=== PATIENT | male | born 1965 | race Caucasian/White ===

== ENCOUNTER → 2025-06-03 08:33 | Outpatient (BNVA) | payer BC, MEDICAID, SELFPAY | PROVIDERS: PCP Nurse Practitioner Family; Referring Provider Family Medicine; Visit Provider Internal Medicine Cardiovascular Disease | DX: R07.9 Chest pain, unspecified (principal); I11.0 Hypertensive heart disease with heart failure; I50.9 Heart failure, unspecified; I49.8 Other specified cardiac arrhythmias; I44.7 Left bundle-branch block, unspecified | CPT/HCPCS: 36415; 80053; 83880; 93005 ==